=== PATIENT | female | born 1980 | race African-American/Black ===

== ENCOUNTER 2017-11-22 10:08 | Emergency (ER) | payer OTHER ==
[2017-11-22] MEDS: diphenhydrAMINE INJ 50MG/ML VIAL (J1200) IV ×2 (11:01)
[2017-11-22] MEDS: FAMOTIDINE INJ 20MG/2ML VIAL (S0028) IV ×2 (11:01)
[2017-11-22] MEDS: methylPREDNISolone INJ 125 MG/2 ML VIAL (J2930) IV ×2 (11:01)
[2017-11-22 11:22] LABS: BASO % 0.4 % (0.0-1.0); EOS # 0.1 10^3/uL (0.0-0.50); EOS % 1.1 % (0.0-3.0); HEMATOCRIT 40.4 % (36.0-47.0); HEMOGLOBIN 13.5 g/dl (12.0-15.5); IMMATURE GRANULOCYTE % 0.1 % (0-3.0); LYMPH # 2.5 10^3/uL (1.5-4.5); LYMPH % 35.7 % (24.0-44.0); MEAN CORPUSCULAR HEMOGLOBIN 27.3 pg (27.0-33.0); MEAN CORPUSCULAR HGB CONC 33.4 g/dl (32.0-36.5); MEAN CORPUSCULAR VOLUME 81.6 fl (80.0-96.0); MONO # 0.4 10^3/uL (0.0-0.8); MONO % 6.1 % (0.0-5.0); NEUTROPHILS % 56.6 % (36.0-66.0); PLATELET COUNT, AUTOMATED 337 10^3/uL (150-450); RED BLOOD COUNT 4.95 10^6/uL (4.00-5.40); WHITE BLOOD COUNT 7.1 10^3/uL (4.0-10.0)
[2017-11-22 11:57] LABS: ALBUMIN 3.3 GM/DL (3.2-5.2); ALKALINE PHOSPHATASE 90 U/L (45-117); ALT/SGPT 108 U/L (12-78); ANION GAP 7 MEQ/L (8-16); AST/SGOT 365 U/L (7-37); BILIRUBIN,DIRECT 0.1 MG/DL (0.0-0.2); BILIRUBIN,TOTAL 0.5 MG/DL (0.2-1.0); BLOOD UREA NITROGEN 7 MG/DL (7-18); C REACTIVE PROTEIN QUANTITATIV 1.35 MG/DL (0.00-0.30); CALCIUM LEVEL 7.9 MG/DL (8.5-10.1); CARBON DIOXIDE LEVEL 27 MEQ/L (21-32); CHLORIDE LEVEL 106 MEQ/L (98-107); GLOMERULAR FILTRATION RATE > 60.0 (>60); GLUCOSE, FASTING 90 MG/DL (70-100); POTASSIUM SERUM 3.9 MEQ/L (3.5-5.1); SODIUM LEVEL 140 MEQ/L (136-145); TOTAL PROTEIN 7.4 GM/DL (6.4-8.2)
[2017-11-22 12:13] LABS: ERYTHROCYTE SEDIMENTATION RATE 6 mm/hr (0-20)
[2017-11-23 10:22] LABS: HEPATITIS B SURFACE ANTIGEN NEGATIVE (NEGATIVE)
[2017-11-23 10:50] LABS: HEPATITIS B CORE ANTIBODY IGM NEGATIVE (NEGATIVE)
[2017-11-23 10:51] LABS: HEPATITIS A ANTIBODY IGM NEGATIVE (NEGATIVE)
== END 2017-11-22 14:58 | disposition home or self-care (01) ==
LOC: M ED 10:08
DX: T78.40XA Allergy, unspecified, initial encounter (principal); Y92.9 Unspecified place or not applicable; Y93.9 Activity, unspecified; M54.9 Dorsalgia, unspecified; Z91.018 Allergy to other foods
CPT/HCPCS: J1200

== ENCOUNTER → 2020-10-15 | Outpatient (CLI) | payer OTHER ==
[~2020-10-15] MED LIST: PRED20TA PO
--- NOTE | 2020-10-15 12:00 | REP ---
INDICATION: N63.10 DIAG RIGHT MAMMO/BREAST LUMP. COMPARISON: None TECHNIQUE: Diagnostic mammography was carried out on the right breast in the CC and MLO projections using both 2D and 3D modalities. There are no priors for comparison. In addition to the standard FFDM images diagnostic digital magnified spot compression views were obtained over the region of clinical interest near the 3 o'clock position. Ultrasonography of the region of clinical interest was also obtained. FINDINGS: There are no masses. There is no internal architectural distortion. There are no suspicious microcalcifications. There is no skin thickening or nipple retraction. Diagnostic digital magnified spot-compression views show no abnormalities. Diagnostic ultrasonography shows no cystic or solid masses. The Volpara volumetric breast density pattern is b. IMPRESSION: BIRADS/ACR category 1 negative mammogram. There is no evidence of malignant alteration of the right breast seen mammographically or ultrasonographically. This patient's Tyrer-Cuzick lifetime breast cancer risk assessment score is 15.1%. This mammogram was interpreted with the aid of an FDA-approved computer-aided detection system. I have no indication as to when the patient last had a clinical breast exam. The patient letter being requested is M2. RECOMMENDATION: Repeat screening mammography recommended 1 year (for women over 40). <Electronically signed by Joshua Bernstein > 10/15/20 [id number]
== END ==
LOC: M WHC 10:10
PROVIDERS: ATTEND Nurse Practitioner Family
DX: Z12.31 Encounter for screening mammogram for malignant neoplasm of breast (principal)
CPT/HCPCS: 76642; 77065; G0279

== ENCOUNTER → 2022-02-28 | Outpatient (CLI) | payer OTHER ==
[~2022-02-28] MED LIST changes: +BARIUM SULFATE 700 MG TABLET (E-Z-DISK) As Ordered ONE; +E-Z-PAQUE 96% w/w SUSP 176GM BTL As Ordered ONE; +VARIBAR NECTAR 40% w/v 240ML SUSP BTL As Ordered ONE; +VARIBAR PUDDING 40% w/v 230ML TUBE As Ordered ONE
== END ==
LOC: M RAD 10:06
PROVIDERS: ATTEND Physician Assistant
DX: R13.19 Other dysphagia (principal)